=== PATIENT | female | born 1970 | race Two or more races ===

== ENCOUNTER 2022-01-22 06:00 | Day surgery (SDC) | payer OTHER ==
[~2022-01-22] VITALS: Ht 165.1 cm; Wt 88.5 kg
[~2022-01-22 06:00] MED LIST: DIAZEPAM10 MG; SYNTHROID112 MCG; SYNTHROID125 MCG
== END 2022-01-22 19:50 | disposition home or self-care (01) ==
LOC: CIR.AMB 06:00
PROVIDERS: ATTEND Obstetrics & Gynecology
DX: N95.0 Postmenopausal bleeding (principal); E78.5 Hyperlipidemia, unspecified; F17.210 Nicotine dependence, cigarettes, uncomplicated; E16.2 Hypoglycemia, unspecified; E03.9 Hypothyroidism, unspecified; Z20.822 Contact with and (suspected) exposure to COVID-19; Z91.013 Allergy to seafood